=== PATIENT | female | born 1995 | race American Indian/Alaskan Native ===

== ENCOUNTER 2016-09-16 17:32 | Emergency (ER) | payer MEDICAID ==
[2016-09-16 18:16] VITALS: BP 108/66
== END 2016-09-17 01:01 | disposition left against medical advice (07) ==
LOC: ED 17:32
DX: S61.219A Laceration without foreign body of unspecified finger without damage to nail, initial encounter (principal); Z53.21 Procedure and treatment not carried out due to patient leaving prior to being seen by health care provider; W45.8XXA Other foreign body or object entering through skin, initial encounter; Y93.89 Activity, other specified; Y99.8 Other external cause status; Y92.89 Other specified places as the place of occurrence of the external cause

== ENCOUNTER 2016-11-05 16:36 | Outpatient (CLI) | payer MEDICAID ==
[2016-11-05 17:50] VITALS: BP 98/56
== END 2016-11-05 19:42 | disposition swing bed (61) ==
LOC: TRG 16:36 → LD 17:45 → TRG 19:42
PROVIDERS: ATTEND Obstetrics & Gynecology
DX: O47.03 False labor before 37 completed weeks of gestation, third trimester (principal); Z3A.36 36 weeks gestation of pregnancy
CPT/HCPCS: 59025

== ENCOUNTER 2016-11-16 02:55 | Outpatient (CLI) | payer MEDICAID ==
[2016-11-16 03:09] VITALS: BP 106/64
[2016-11-16] MEDS ORDERED: VISTARIL PO ONE (05:15)
== END 2016-11-16 05:35 | disposition home or self-care (01) ==
LOC: TRG 02:55
PROVIDERS: ATTEND Obstetrics & Gynecology
DX: O47.03 False labor before 37 completed weeks of gestation, third trimester (principal); Z3A.30 30 weeks gestation of pregnancy
CPT/HCPCS: 59025; Q0177

== ENCOUNTER 2019-05-05 06:28 | Inpatient (IN) | payer MEDICAID ==
[2019-05-05 08:10] LABS: Basophils % (Auto) 0.3 % (0.0-1.8); Eosinophils # (Auto) 0.1 K/mm3 (0.0-0.4); Eosinophils % (Auto) 0.8 % (0.0-4.3); Hematocrit 35.2 % (30.3-42.9); Hemoglobin 11.7 gm/dl (10.1-14.3); Lymphocytes # (Auto) 1.3 K/mm3 (1.2-5.4); Lymphocytes % (Auto) 14.5 % (13.4-35.0); Mean Corpuscular HGB Conc 33 % (30-34); Mean Corpuscular Volume 91 fl (79-97); Monocytes # (Auto) 0.7 K/mm3 (0.0-0.8); Monocytes % (Auto) 7.8 % (0.0-7.3); Platelet Count 275 K/mm3 (140-440); Red Blood Count 3.88 M/mm3 (3.65-5.03)
[2019-05-05] MEDS ORDERED: LACTATED RINGERS 1,000 ML ONE (08:13)
[2019-05-05] MEDS ORDERED: LACTATED RINGERS 1,000 ML IV ONE (08:30)
[2019-05-05] MEDS ORDERED: AMPICILLIN/NS 2 GM/100 ML 2 GM/100 ML BAG IV NR (08:30)
[2019-05-05] MEDS ORDERED: OXYTOCIN 20 UNIT/1000ML DRIP 40,000 MILLIUNITS/2,000 ML BAG IV ONE (09:25)
--- NOTE | 2019-05-05 09:55 | History and Physical Report ---
History of Present Illness Date of examination: 05/05/19 Date of admission: 05/05/19 06:55 Chief complaint: I'm in labor History of present illness: Pt is 23 year old who presents in active labor at 39 weeks. No records are available for review. Pt states that she is GBS positive and reports no issues with her Past History Past Medical History: no pertinent history Past Surgical History: no surgical history Family/Genetic History: none Social history: no significant social history - Obstetrical History Expected Date of Delivery: 05/12/19 Actual Gestation: 39 Week(s) 0 Day(s) : 2 Para: 1 Number of Living Children: 1 Medications and Allergies Allergies Allergy/AdvReac Type Severity Reaction Status Date / Time No Known Allergies Allergy Verified 11/16/16 05:18 Home Medications Medication Instructions Recorded Confirmed Last Taken Type HYDROcodone/APAP 5-325 [[place] 1 each PO Q6HR PRN #30 tablet 11/18/16 Unknown Rx 5/325] Ibuprofen [Motrin] 600 mg PO Q6H PRN #30 tablet 11/18/16 Unknown Rx Vit-Fe Fumar-FA [ 1 tab PO QDAY #30 tablet 11/18/16 Unknown Rx Vitamin] Active Meds: Active Medications Ampicillin Sodium (Ampicillin/Ns 2 Gm/100 Ml) 2 gm in 100 mls @ 100 mls/hr IV ONCE NR; Protocol Stop: 05/05/19 10:00 Last Admin: 05/05/19 08:27 Dose: 100 mls/hr Documented by: Review of Systems All systems: negative Gastrointestinal: abdominal pain Genitourinary: contractions - Vital Signs Vital signs: Vital Signs Temp 97.3 F L 05/05/19 07:31 Temp Pulse Resp BP Pulse Ox 97.3 F L 97 H 106/60 05/05/19 07:31 05/05/19 07:39 05/05/19 07:39 - Physical Exam Breasts: Cardiovascular: Regular rate, Normal S1, Normal S2 Lungs: Positive: Clear to auscultation, Normal air movement Abdomen: Positive: normal appearance, soft, normal bowel sounds. Negative: d istention, tenderness Vulva: both: normal Vagina: Positive: normal moisture. Negative: discharge Cervix: Negative: lesion, discharge Uterus: Positive: normal size, normal contour Adnexa: both: normal Anus/Rectum: Positive: normal perianal skin, heme negative. Negative: rectal mass, hemorrhoids Extremities: Deep Tendon Reflex Grade: Normal +2 - Obstetrical FHR: auscultation normal Uterine Contraction Monitor Mode: Palpation Cervical Dilatation: 7 Cervical Effacement Percentage: 80 station: -2 Uterine Contraction Intensity: Moderate Results Result Diagrams: 05/05/19 07:30 Abnormal lab results 05/05/19 Range/Units 07:30 [place] % (Auto) 7.8 H (0.0-7.3) % Seg Neutrophils % 76.6 H (40.0-70.0) % All other labs normal. Assessment and Plan IUP at 38.6 doing well. Admit for labor. Pt does not want epidural. Anticipate ,
--- NOTE | 2019-05-05 09:59 | Procedure Note ---
OB Delivery Note - Delivery Date of Delivery: 05/05/19 Surgeon: NORI FLORES Estimated blood loss: 200cc - Vaginal Delivery presentation: vertex Delivery position: OA Delivery induction: none Delivery monitor: external FHT, external uterine Route of delivery: Delivery placenta: spontaneous Delivery cord: 3 umbilical vessels Episiotomy: none Delivery laceration: none Anesthesia: none Delivery comments: Viable female delivered over intact perineum without nuchal. Infant placed on maternal abdomen. Cord clamped and cut. Placenta delivered spontaneously and intact with 3vc. No lacerations. Pt tolerated procedure well. - A at 1 minute: 8 at 5 minutes: 9 Infant Gender: Female (7 pounds 11 ounces)
[2019-05-05] MEDS ORDERED: ONDANSETRON 4 MG/2 ML INJ IV PRN (11:00)
[2019-05-05] MEDS ORDERED: ACETAMINOPHEN 325 MG TAB PO PRN (11:00)
[2019-05-05] MEDS ORDERED: LANOLIN/ZINC/DIMETHICONE (LANSINOH) 7 GM TP PRN (11:00)
[2019-05-05] MEDS ORDERED: PROMETHAZINE 25 MG TAB PO PRN (11:00)
[2019-05-05] MEDS ORDERED: diphenhydrAMINE 25 MG CAP PO PRN (11:00)
[2019-05-05] MEDS ORDERED: HYDROcodone/ACETAMINOPHEN 5-325 MG TAB PO PRN (11:00)
[2019-05-05] MEDS ORDERED: WITCH HAZEL/ GLYCERIN PAD TP PRN (11:00)
[2019-05-05] MEDS: FERROUS SULFATE 325 MG TAB PO SCH (11:42)
[2019-05-05] MEDS: PRENATAL VIT27-FE FUMARATE-FOLIC ACID VIT TAB PO SCH (11:43)
[2019-05-05] MEDS: IBUPROFEN 600 MG TAB PO SCH ×2 (12:56→18:57)
[2019-05-05] MEDS: DOCUSATE SODIUM 100 MG CAP PO SCH (13:10)
[2019-05-05 21:10] LABS: Hemoglobin 9.8 gm/dl (10.1-14.3)
[2019-05-05] MEDS ORDERED: MAGNESIUM HYDROXIDE (MOM) ORAL LIQD UDC PO PRN (22:00)
[2019-05-06] MEDS: IBUPROFEN 600 MG TAB PO SCH ×4 (00:53→21:54)
[2019-05-06] MEDS: FERROUS SULFATE 325 MG TAB PO SCH ×3 (10:31→22:15)
[2019-05-06] MEDS: DOCUSATE SODIUM 100 MG CAP PO SCH ×2 (10:31→21:54)
[2019-05-06] MEDS: PRENATAL VIT27-FE FUMARATE-FOLIC ACID VIT TAB PO SCH (10:31)
--- NOTE | 2019-05-06 11:57 | Progress Note ---
Assessment and Plan PPD 1 s/p . Doing well. Pt needs to stay 48 hours for untreated GBS. Plan to discharge on tomorrow morning. Subjective - Subjective Date of service: 05/06/19 Interval history: Pt is 23 year old who presents in active labor at 39 weeks. No records are available for review. Pt states that she is GBS positive and reports no issues with her Patient reports: appetite normal, voiding normally, pain well controlled, flatus, ambulating normally : doing well Objective - Vital Signs Latest vital signs: Vital Signs Temp Pulse Resp BP BP Pulse Ox 05/06/19 07:22 98.2 F 73 18 97/61 05/06/19 00:15 98.2 F 20 112/59 05/06/19 00:12 98.2 F 95 H 20 104/41 99 05/05/19 17:29 97.9 F 79 17 100/54 98 05/05/19 12:05 98.1 F 89 18 133/67 96 Intake and Output 05/05/19 05/06/19 05/06/19 22:59 06:59 14:59 Intake Total 240 600 480 Balance 240 600 480 Intake: Oral 240 600 480 Other: Total, Intake Amount 240 120 480 # Voids Void 1 1 - Exam Breasts: Present: deferred Cardiovascular: Present: Regular rate, Normal S1, Normal S2 Lungs: Present: Clear to auscultation, Normal air movement Abdomen: Present: normal appearance, soft, normal bowel sounds Vulva: both: normal Uterus: Present: normal, firm, fundal height below umbilicus Extremities: Present: normal - Labs Labs: Abnormal lab results 05/05/19 Range/Units 20:36 Hgb 9.8 L (10.1-14.3) gm/dl
--- NOTE | 2019-05-06 12:00 | Discharge Summary ---
Providers - Providers Date of Admission: 05/05/19 06:55 Date of discharge: 05/07/19 Attending physician: ASHLEE IRCE MD Primary care physician: ASHLEE RICE MD Hospitalization Reason for admission: active labor Delivery: Laceration: none complications: none Discharge diagnosis: IUP at term delivered [place] baby: female Hospital course: unremarkable Condition at discharge: Good Disposition: DC-01 TO HOME OR SELFCARE Plan - Discharge Medications Prescriptions: Ibuprofen [Motrin 600 MG tab] 600 mg PO Q6H #30 tablet HYDROcodone/APAP 5-325 [[place] 5-325 mg TAB] 2 each PO Q6H PRN #20 tablet PRN Reason: Pain, Moderate (4-6) - Provider Discharge Summary Activity: routine, no sex for 6 weeks, no heavy lifting 4 weeks, no strenuous exercise Diet: routine Instructions: routine Additional instructions: [] Smoking cessation referral if applicable(refer to patient education folder for contact #) [] Refer to [facility]'s [facility] Booklet Call your doctor immediately for: * Fever > 100.5 * Heavy vaginal bleeding ( >1 pad per hour) * Severe persistent headache * Shortness of breath * Reddened, hot, painful area to leg or breast * Drainage or odor from incision. * Keep incision clean and dry at all times and follow doctor's instructions regarding bathing/showering - Follow up plan Follow up: ASHLEE RICE MD [Primary Care Provider] - 6 Weeks
[2019-05-07] MEDS: IBUPROFEN 600 MG TAB PO SCH ×3 (05:38→11:57)
[2019-05-07 08:38] VITALS: BP 112/61
[2019-05-07] MEDS: FERROUS SULFATE 325 MG TAB PO SCH (10:58)
[2019-05-07] MEDS: DOCUSATE SODIUM 100 MG CAP PO SCH (10:58)
[2019-05-07] MEDS: PRENATAL VIT27-FE FUMARATE-FOLIC ACID VIT TAB PO SCH (10:58)
== END 2019-05-07 15:17 | disposition home or self-care (01) | DRG 775 ==
LOC: TRG 06:28 → LD 06:55 → OB 12:39
PROVIDERS: ADMIT Obstetrics & Gynecology; ATTEND Obstetrics & Gynecology
PROC: 10E0XZZ Delivery of Products of Conception, External Approach (ICD-10-PCS; principal; 2019-05-05)
DX: O80 Encounter for full-term uncomplicated delivery (principal); Z3A.39 39 weeks gestation of pregnancy; Z37.0 Single live birth
CPT/HCPCS: 36415; 59025; 85014; 85018; 85025; 86592; 86850; 86900; 86901; G0378; J0290; J2590; J7120